=== PATIENT | female | born 1990 | race Two or more races ===

== ENCOUNTER 2018-01-24 17:40 | Emergency (ER) | payer SELFPAY ==
[~2018-01-24] VITALS: Ht 154.9 cm; Wt 111.4 kg
[2018-01-24 17:48] VITALS: Ht 154.9 cm; Wt 111.4 kg
[2018-01-24 18:13] LABS: BASOPHILS 0.1 % (0-2); EOSINOPHILS 6.9 % (0-7); HEMATOCRIT 41.8 % (36.0-48.0); HEMOGLOBIN 14.1 g/dL (12-16); IMMATURE GRANULOCYTES 0.4 % (0-5); LYMPHOCYTES 11.1 % (15-50); MCH 29.9 pg (26.0-34.0); MCHC 33.7 g/dL (31.0-37.0); MCV 88.6 fL (80.0-100.0); MONOCYTES 2.5 % (2-11); RBC 4.72 10x6/uL (4.00-5.40); RDW 13.7 % (11.5-14.5); WBC 13.4 10x3/uL (4.8-10.8)
[2018-01-24 18:26] LABS: HCG URINE NEGATIVE (NEGATIVE)
[2018-01-24 18:28] LABS: ALBUMIN 3.3 g/dL (3.4-5.0); ALKALINE PHOSPHATASE 112 U/L (46-116); ALT (SGPT) 38 U/L (10-68); BILIRUBIN - TOTAL 0.58 mg/dL (0.2-1.3); CALC OSMOLALITY 277 mosm/kg (275-300); CALCIUM 8.3 mg/dL (8.5-10.1); CARBON DIOXIDE 27.2 mmol/L (21.0-32.0); CHLORIDE - SERUM 104 mmol/L (98-107); CREATININE - SERUM 0.7 mg/dL (0.6-1.3); GLUCOSE 99 mg/dL (74-106); POTASSIUM - SERUM 3.8 mmol/L (3.5-5.1); PROTEIN - SERUM 7.8 g/dL (6.4-8.2); SODIUM 140 mmol/L (136-145); UREA NITROGEN 9 mg/dL (7-18); eGFR NON AFRICAN AMERICAN > 90 mL/min (90-120)
[2018-01-24 18:32] LABS: PLATELET COUNT 189 10x3/uL (130-400)
[2018-01-24 18:46] LABS: APPEARANCE CLEAR (CLEAR); COLOR YELLOW (YELLOW); SPECIFIC GRAVITY 1.015 (1.005-1.020)
[2018-01-24 18:47] LABS: BILIRUBIN NEGATIVE (NEGATIVE); GLUCOSE NEGATIVE (NEGATIVE); KETONE NEGATIVE (NEGATIVE); NITRITE NEGATIVE (NEGATIVE); PROTEIN NEGATIVE (NEGATIVE); UROBILINOGEN NORMAL (NORMAL)
[2018-01-24 18:48] LABS: BACTERIA FEW /hpf (NONE SEEN); RED CELLS - URINE OCC /hpf (0-5)
[2018-01-24] MEDS ORDERED: COMPAZINE10 MG PO (22:21)
[2018-01-24] MEDS ORDERED: BENTYL 20 MG TA20 MG PO (22:21)
[2018-01-24 22:58] VITALS: BP 120/78
== END 2018-01-24 22:55 | disposition home or self-care (01) ==
LOC: D.ER 17:40
PROVIDERS: Family Medicine
DX: I88.0 Nonspecific mesenteric lymphadenitis (principal); R11.2 Nausea with vomiting, unspecified; A08.4 Viral intestinal infection, unspecified; F17.200 Nicotine dependence, unspecified, uncomplicated